=== PATIENT | female | born 1995 | race Caucasian/White ===

== ENCOUNTER 2018-02-11 22:23 | Emergency (ER) | payer OTHER ==
[2018-02-11 22:50] VITALS: BP 123/87
[2018-02-11] MEDS ORDERED: PROCHLORPERAZINE EDISYLATE INJ 10 MG/2 ML VIAL IV ONE (23:15)
[2018-02-11] MEDS ORDERED: ONDANSETRON HCL INJ/PF 4 MG/2 ML SDV IV ONE (23:15)
[2018-02-11] MEDS ORDERED: NORMAL SALINE 1000 ML 1,000 ML IV ONE (23:15)
--- NOTE | 2018-02-11 23:33 | ER Document Report ---
ED General - General Chief Complaint: Passed Out Prior to Arrival Stated Complaint: DIZZINESS Time Seen by Provider: 02/11/18 23:04 TRAVEL OUTSIDE OF THE [place] IN LAST 30 DAYS: No - HPI Patient complains to provider of: Multiple complaints Notes: Patient coming in with syncopal episode just prior to arrival. Patient states she was taking laundry upstairs when she passed out fell did hit her head approximately for 1 minute. Patient states she also has had extreme dizziness stomach pains difficulty breathing for the last 4 days and had migraines. Patient has a history of migraines has seen neurology in the past however states increasing in frequency of the migraines. Patient has no medications for any of her medical complaints at this time. Patient states recently traveled out of state driving. Patient states she is only currently on control. Denies any smoking drinks socially denies any drugs. - Related Data Allergies/Adverse Reactions: Sulfa (Sulfonamide Antibiotics) Allergy (Verified 02/11/18 22:35) sulfamethoxazole [From Septra] Allergy (Verified 02/11/18 22:35) trimethoprim [From Septra] Allergy (Verified 02/11/18 22:35) Past Medical History - Social History Smoking Status: Unknown if Ever Smoked Family History: Reviewed & Not Pertinent Review of Systems - Review of Systems Constitutional: Other - Syncope weakness dizziness migraines EENT: No symptoms reported Cardiovascular: No symptoms reported Respiratory: No symptoms reported Gastrointestinal: No symptoms reported Genitourinary: No symptoms reported Female Genitourinary: No symptoms reported Musculoskeletal: No symptoms reported Skin: No symptoms reported Hematologic/Lymphatic: No symptoms reported Neurological/Psychological: No symptoms reported Physical Exam - Vital signs Vitals: Temp Pulse Resp BP Pulse Ox 99.3 F 101 H 20 123/87 H 99 02/11/18 22:46 02/11/18 22:46 02/11/18 22:46 02/11/18 22:46 02/11/18 22:46 Interpretation: Normal - General General appearance: Appears well, Alert - HEENT Head: Normocephalic, Atraumatic Eyes: Normal Conjunctiva: Normal Cornea: Normal Extraocular movements intact: Yes Eyelashes: Normal Pupils: PERRL Ears: Normal External canal: Normal Tympanic membrane: Normal Nasal: Normal Mouth/Lips: Normal Mucous membranes: Normal Pharynx: Normal Neck: Normal - Respiratory Respiratory status: No respiratory distress Chest status: Nontender Breath sounds: Normal Chest palpation: Normal - Cardiovascular Rhythm: Regular Heart sounds: Normal auscultation Murmur: No - Abdominal Inspection: Normal Distension: No distension Bowel sounds: Normal Tenderness: Nontender Organomegaly: No organomegaly - Back Back: Normal, Nontender - Extremities General upper extremity: Normal inspection, Nontender, Normal color, Normal ROM , Normal temperature General lower extremity: Normal inspection, Nontender, Normal color, Normal ROM , Normal temperature, Normal weight bearing. No: Ramakrishna's sign - Neurological Neuro grossly intact: Yes Cognition: Normal Orientation: AAOx4 Jewel Coma Scale Eye Opening: Spontaneous [place] Coma Scale Verbal: Oriented Jewel Coma Scale Motor: Obeys Commands Jewel Coma Scale Total: 15 Speech: Normal Motor strength normal: LUE, RUE, LLE, RLE Sensory: Normal - Psychological Associated symptoms: Normal affect, Normal mood - Skin Skin Temperature: Warm Skin Moisture: Dry Skin Color: Normal Course - Re-evaluation Re-evalutation: 02/11/18 23:32 Physical examination of the patient was normal. No critical etiology seen we will send laboratory studies down we will get a head CT chest x-ray for the patient's multiple complaints. D-dimer has been sent. Will order Compazine Zofran for her dizziness and underlying conditions. 02/12/18 01:45 Laboratory studies are completely negative. Patient has declined her CT scan of her head at this time. We will review the patient's laboratory results - Vital Signs Vital signs: Temp Pulse Resp BP Pulse Ox 98.2 F 101 H 13 123/87 H 96 02/12/18 02:15 02/11/18 22:46 02/12/18 02:00 02/11/18 22:46 02/12/18 02:00 - Laboratory Result Diagrams: 02/12/18 00:30 02/12/18 00:30 Discharge - Discharge Clinical Impression: Syncope Qualifiers: Syncope type: unspecified Qualified Code(s): R55 - Syncope and collapse Headache Qualifiers: Headache type: unspecified Headache chronicity pattern: unspecified pattern Intractability: not intractable Qualified Code(s): R51 - Headache Condition: Good Disposition: HOME, SELF-CARE Instructions: Headache ([facility]), Syncopal Episode ([facility]) Additional Instructions: Your evaluation does not show any critical pathology for your symptoms tonight no critical pathology for your headaches no critical pathology for your stomach pains. Highly recommend she follow-up with your primary care physician. Recommend taking the Compazine Zofran as prescribed take these 2 tablets together for headaches separately for any nausea that she may have. Return to the ER if any symptoms worsen please make sure you are drinking plenty of fluids to stay well-hydrated. Prescriptions: Ondansetron HCl [Zofran 4 mg Tablet] 1 - 2 tab PO Q6 #30 tablet Prochlorperazine Maleate [Compazine] 5 mg PO Q6 #30 tablet Referrals: MADELYN BILL MD [Primary Care Provider] - Follow up as needed
[2018-02-12 00:46] LABS: ABSOLUTE EOSINOPHILS # (AUTO) 0.3 10^3/uL (0.0-0.6); ABSOLUTE LYMPHOCYTES (AUTO) 2.6 10^3/uL (0.5-4.7); ABSOLUTE MONOCYTES (AUTO) 0.5 10^3/uL (0.1-1.4); ABSOLUTE NEUT (AUTO) 3.7 10^3/uL (1.7-8.2); BASOPHILS % (AUTO) 0.6 % (0-2); EOSINOPHILS % (AUTO) 4.8 % (0-6); HEMATOCRIT 41.9 % (36.0-47.0); HEMOGLOBIN 14.3 g/dL (12.0-15.5); LYMPHOCYTES % (AUTO) 36.3 % (13-45); MEAN CORPUSCULAR HEMOGLOBIN 30.4 pg (27.0-33.4); MEAN CORPUSCULAR HGB CONC 34.3 g/dL (32.0-36.0); MEAN CORPUSCULAR VOLUME 89 fl (80-97); MONOCYTES % (AUTO) 6.5 % (3-13); PLATELET COUNT 317 10^3/uL (150-450); RED BLOOD COUNT 4.71 10^6/uL (3.72-5.28); RED CELL DISTRIBUTION WIDTH 12.6 % (11.5-14.0); SEGMENTED NEUTROPHILS % (AUTO) 51.8 % (42-78); TOTAL CELLS COUNTED % (AUTO) 100 %; WHITE BLOOD COUNT 7.1 10^3/uL (4.0-10.5)
[2018-02-12 00:52] LABS: INTERNATIONAL RATION (INR) 0.85
[2018-02-12 01:05] LABS: ALANINE AMINOTRANSFERASE 37 U/L (9-52); ALBUMIN 4.3 g/dL (3.5-5.0); ALKALINE PHOSPHATASE 58 U/L (38-126); ANION GAP 10 (5-19); ASPARTATE AMINO TRANSFERASE 22 U/L (14-36); BILIRUBIN,DIRECT 0.2 mg/dL (0.0-0.4); BILIRUBIN,TOTAL 0.4 mg/dL (0.2-1.3); BLOOD UREA NITROGEN 15 mg/dL (7-20); CALCIUM 9.6 mg/dL (8.4-10.2); CARBON DIOXIDE 30 mmol/L (22-30); CHLORIDE 101 mmol/L (98-107); CREATINE KINASE 54 U/L (30-135); GLUCOSE 93 mg/dL (75-110); LIPASE 72.9 U/L (23-300); POTASSIUM 4.4 mmol/L (3.6-5.0); TOTAL PROTEIN 7.6 g/dL (6.3-8.2)
[2018-02-12 01:12] LABS: D-DIMER < 0.27 ug/mL (0.00-0.50)
[2018-02-12 01:19] LABS: CREATINE KINASE MB 0.39 ng/mL (<4.55)
[2018-02-12 01:20] LABS: TROPONIN I < 0.012 ng/mL
[2018-02-12 02:26] LABS: APPEARANCE,URINE CLEAR; BILIRUBIN,URINE NEGATIVE (NEGATIVE); COLOR,URINE YELLOW; GLUCOSE, URINE NEGATIVE (NEGATIVE); KETONES,URINE NEGATIVE (NEGATIVE); LEUKOCYTE ESTERASE,URINE NEGATIVE (NEGATIVE); NITRITE,URINE NEGATIVE (NEGATIVE); PROTEIN,URINE NEGATIVE (NEGATIVE); URINE SPECIFIC GRAVITY 1.019; UROBILINOGEN,URINE NEGATIVE mg/dL (<2.0)
--- NOTE | 2018-02-12 09:19 | EKG REPORT ---
SEVERITY:- OTHERWISE NORMAL ECG - SINUS TACHYCARDIA : Confirmed by: Fernanda Mendes MD 12-Feb-2018 09:18:49
== END 2018-02-12 02:38 | disposition home or self-care (01) ==
LOC: ER 22:23
DX: R55 Syncope and collapse (principal); R51 Headache; R42 Dizziness and giddiness; R53.1 Weakness; W19.XXXA Unspecified fall, initial encounter
CPT/HCPCS: 93005; 99284; 96374; 96375; 36415; 82553; 82550; 83690; 83735; 84703; 85025; 85610; 81025; 80053; 81001; 84484; 85379; 93010; J0780; J2405; J7030

== ENCOUNTER 2019-03-31 15:16 | Emergency (ER) | payer BC, OTHER ==
[2019-03-31 15:25] VITALS: BP 97/50
[2019-03-31] MEDS ORDERED: DIPH/PERTUSS(ACELL)/TETANUS VAC/PF 0.5 ML SYR (>=10YO) IM ONE (15:38)
[2019-03-31] MEDS ORDERED: IBUPROFEN 800 MG TABLET PO ONE (15:38)
--- NOTE | 2019-03-31 15:38 | ER Document Report ---
ED Medical Screen (RME) - General Chief Complaint: Hand Injury Stated Complaint: RIGHT HAND INJURY Time Seen by Provider: 03/31/19 15:32 Primary Care Provider: MADELYN BILL MD [ACTIVE STAFF] - Follow up as needed Mode of Arrival: Ambulatory Information source: Patient Notes: 24-year-old female presents the ED for laceration to the base of the right thumb. She states she was opening a can of yams when she sliced her finger on the jams. It was bleeding when first examined her but it was easily stopped. Patient stated her tetanus was not up-to-date and she was given her tetanus immunization. TRAVEL OUTSIDE OF THE [place] IN LAST 30 DAYS: No - HPI Onset: Just prior to arrival Onset/Duration: Sudden Quality of pain: Sharp, Throbbing Pain Level: 4 Associated Symptoms: Other - laceration Exacerbated by: Movement Relieved by: Denies Similar symptoms previously: No Recently seen / treated by doctor: No - Related Data Smoking: Non-smoker Frequency of alcohol use: Social Drug Abuse: None Allergies/Adverse Reactions: Sulfa (Sulfonamide Antibiotics) Allergy (Verified 03/31/19 15:23) sulfamethoxazole [From Septra] Allergy (Verified 03/31/19 15:23) trimethoprim [From Septra] Allergy (Verified 03/31/19 15:23) Past Medical History - General Information source: Patient - Social History Cigarette use (# per day): No Frequency of alcohol use: Social Drug Abuse: None Occupation: eye care Lives with: Family Family history: Reviewed & Not Pertinent - Past Medical History Cardiac Medical History: Reports: None Pulmonary Medical History: Reports: None EENT Medical History: Reports: None Neurological Medical History: Reports: Hx Migraine Endocrine Medical History: Reports: None Renal/ Medical History: Reports: None Malignancy Medical History: Reports: None GI Medical History: Reports: None Musculoskeltal Medical History: Reports None Skin Medical History: Reports None Psychiatric Medical History: Reports: Hx Anxiety, Other - panic attacks vertigo Traumatic Medical History: Reports: None Infectious Medical History: Reports: None Past Surgical History: Reports: Hx Oral Surgery - wisdom - Immunizations Immunizations up to date: Yes Hx Diphtheria, Pertussis, Tetanus Vaccination: Yes - 03/31/2019 Review of Systems - Review of Systems Constitutional: No symptoms reported EENT: No symptoms reported Cardiovascular: No symptoms reported Respiratory: No symptoms reported Gastrointestinal: No symptoms reported Genitourinary: No symptoms reported Female Genitourinary: No symptoms reported Musculoskeletal: No symptoms reported Skin: Other - Laceration right thumb Hematologic/Lymphatic: No symptoms reported Neurological/Psychological: No symptoms reported -: Yes All other systems reviewed and negative Physical Exam - Vital signs Vitals: Temp Pulse BP Pulse Ox 98.1 F 75 97/50 L 97 03/31/19 15:22 03/31/19 15:22 03/31/19 15:22 03/31/19 15:22 Interpretation: Normal - General General appearance: Appears well, Alert - HEENT Head: Normocephalic, Atraumatic Eyes: Normal Pupils: PERRL - Respiratory Respiratory status: No respiratory distress Chest status: Nontender Breath sounds: Normal Chest palpation: Normal - Cardiovascular Rhythm: Regular Heart sounds: Normal auscultation Murmur: No - Abdominal Inspection: Normal Distension: No distension Bowel sounds: Normal Tenderness: Nontender Organomegaly: No organomegaly - Back Back: Normal, Nontender - Extremities General upper extremity: Normal inspection, Nontender, Normal color, Normal ROM, Normal temperature General lower extremity: Normal inspection, Nontender, Normal color, Normal ROM, Normal temperature, Normal weight bearing. No: Ramakrishna's sign - Neurological Neuro grossly intact: Yes Cognition: Normal Orientation: AAOx4 Jewel Coma Scale Eye Opening: Spontaneous Jewel Coma Scale Verbal: Oriented [place] Coma Scale Motor: Obeys Commands Jewel Coma Scale Total: 15 Speech: Normal Motor strength normal: LUE, RUE, LLE, RLE Sensory: Normal - Psychological Associated symptoms: Normal affect, Normal mood - Skin Skin Temperature: Warm Skin Moisture: Dry Skin Color: Normal Skin irregularity: Laceration Location of irregularity: Extremities - Right hand base of the thumb 1 1/2 cm laceration Irregularity with: Tenderness Course - Re-evaluation Re-evalutation: 03/31/19 16:31 Patient was treated with tetanus immunization, ibuprofen, and Keflex in the emergency room her hand was sutured she was given instructions for care of the wound and discharged home. Patient was able to verbalize understanding and agreement with treatment plan. - Vital Signs Vital signs: Temp Pulse Resp BP Pulse Ox 98.1 F 75 97/50 L 97 03/31/19 15:22 03/31/19 15:22 03/31/19 15:22 03/31/19 15:22 Procedures - Laceration/Wound Repair Right Finger Thumb Time completed: 16:29 Wound length (cm): 1.5 Wound's Depth, Shape: Superficial, Linear Laceration pre-procedure: Sterile PPE donned, Sterile drapes applied, Shur-Clens applied Anesthetic type: 1% Lidocaine Volume Anesthetic (mLs): 4 Wound explored: Clean Irrigated w/ Saline (mLs): 200 Wound Repaired With: Sutures Suture Size/Type: 5:0, Ethilon Number of Sutures: 5 Layer Closure?: No Post-procedure wound care: Sterile dressing applied Post-procedure NV exam normal: Yes Complications: No Doctor's Discharge - Discharge Clinical Impression: Laceration of right thumb Qualifiers: Encounter type: initial encounter Damage to nail status: without damage Foreign body presence: without foreign body Qualified Code(s): S61.011A - Laceration without foreign body of right thumb without damage to nail, initial encounter Condition: Stable Disposition: HOME, SELF-CARE Additional Instructions: Hand Laceration A laceration on the hand can present special problems. It may be difficult to keep the wound dry. Motion of the fingers can disturb the healing edges. Your work may involve exposure to damaging chemicals or water. Keep the wound clean and dry. If you can't keep the cut dry, undisturbed, and free of chemical exposure, please discuss this with the doctor. If any water or chemical gets onto the dressing, remove it, blot the wound dry, then apply a fresh bandage. Dressings should be changed every day. If you feel the stitches pulling as you move the hand, a splint or other form of protection is needed. If any signs of infection occur (swelling, redness, increasing tenderness, red streaks, tender lumps in the armpit, or fever), see the doctor immediately. SOAP CLEANSING: Gently wash the wound daily using a mild soap (like Ivory, Phisoderm, Neutrogena). Use warm water, rubbing gently until all debris, ooze, and crusting have been washed from the wound. Allow to dry briefly (about 10 minutes) after cleaning. Repeat this cleansing at least three times a day for the first two days and then once or twice a day. ANTIBIOTIC OINTMENT PROTECTION: Your wounds are such that dressing them is not practical or optional. After cleansing, you should apply a thin coating of antibiotic ointment (Bacitracin, not Neosporin) to the wounds at least three times daily. This lessens infection risk, and may decrease the amount of scarring. Use a q-tip or dull butter knife, not your finger, to apply this ointment. Any debris or ooze which builds up in the ointment should be gently rubbed off with a sterile gauze pad. Harder crusting may need to be gently scrubbed off with a clean wash cloth with soap and warm water, perhaps applying a warm, wet wash cloth to the wound for ten minutes first. Development of redness, severe itching, or blistering may mean allergy to the ointment. See the doctor. TETANUS IMMUNIZATION GIVEN: You have been given an immunization against tetanus. Please record this in your records. In general, a booster is needed only once every 10 years. The tetanus shot protects against tetanus or "lockjaw," which is a complication of certain wound infections (the tetanus shot cannot protect against the actual infection). The immunization site may become warm and red due to local reaction. If this occurs, apply warm compresses and take aspirin or ibuprofen to reduce inflammation and discomfort. Return for evaluation if the reaction becomes severe. PROPHYLACTIC ANTIBIOTIC: The antibiotics which have been prescribed are designed to decrease the risk of infection. Only certain types of wounds benefit from this -- the typical cut, scrape, or burn DOES NOT require antibiotics. Of course, infection can still occur despite the use of prophylactic antibiotics. Your wound will heal with less chance of an infectious complication if you take the medication as directed. The most important dose is the FIRST dose, so don't delay filling the prescription! FOLLOW-UP CARE: Please return in __3___ days for an infection check and dressing change. Your sutures should be removed in ___10__ days. To facilitate a timely removal of your sutures, you may return to the Emergency Department at [facility]. You do not need to call for an appointment, but the best time to come in for suture removal is early in the morning. If you have been referred to another physician for follow-up care, call that physicians office for an appointment as you were instructed. If you experience a significant change in your laceration, or if you are concerned there may be an infection (swelling, redness, drainage, increasing tenderness, red streaks, tender lumps in the armpit or groin above the laceration, or fever), return to the Emergency Department immediately re-evaluation. Prescriptions: Cephalexin Monohydrate [Keflex 500 mg Capsule] 500 mg PO Q6H 5 Days capsule Referrals: MADELYN BILL MD [ACTIVE STAFF] - 04/03/19
[2019-03-31] MEDS ORDERED: LIDOCAINE 1% INJ-PF (10 MG/ML) 30 ML SDV INJ ONE (15:43)
[2019-03-31] MEDS ORDERED: CEPHALEXIN 500 MG CAPSULE PO ONE (16:28)
== END 2019-03-31 16:41 | disposition home or self-care (01) ==
LOC: ER 15:16
PROC: 0HQFXZZ Repair Right Hand Skin, External Approach (ICD-10-PCS; principal; 2019-03-31)
DX: S61.011A Laceration without foreign body of right thumb without damage to nail, initial encounter (principal); W26.8XXA Contact with other sharp object(s), not elsewhere classified, initial encounter
CPT/HCPCS: 99282; 90471; 90715; 12001; J3490

== ENCOUNTER 2019-06-06 03:58 | Emergency (ER) | payer BC, OTHER ==
[2019-06-06] MEDS ORDERED: ONDANSETRON 4 MG TAB.RAPDIS PO ONE (04:29)
[2019-06-06] MEDS ORDERED: ONDANSETRON HCL INJ/PF 4 MG/2 ML SDV IV ONE (05:12)
[2019-06-06] MEDS ORDERED: NORMAL SALINE 1000 ML 1,000 ML IV ONE (05:12)
--- NOTE | 2019-06-06 05:14 | ER Document Report ---
ED Medical Screen (RME) - General Chief Complaint: Nausea/Vomiting Stated Complaint: CHEST PAIN VOMITING AND COUGHING Time Seen by Provider: 06/06/19 05:11 Primary Care Provider: SHABBIR ALONZO MD [Primary Care Provider] - Follow up as needed Notes: 24-year-old female chief complaint of cough that is productive that has been present for 4 weeks, she also states that over the past day she started vomiting, she has vomited 4 times. She has had fevers intermittently. She has completed 2 courses of antibiotics, last one was about a week ago, she also completed prednisone within the past 2 days. Past medical history of anxiety/depression, denies history of asthma, smoking, recreational drugs. She states she does not think she is . TRAVEL OUTSIDE OF THE [place] IN LAST 30 DAYS: No - Related Data Allergies/Adverse Reactions: Sulfa (Sulfonamide Antibiotics) Allergy (Verified 03/31/19 15:23) sulfamethoxazole [From Septra] Allergy (Verified 03/31/19 15:23) trimethoprim [From Septra] Allergy (Verified 03/31/19 15:23) Home Medications: lamictal. prozac. finished augmentin for sinus infection. finished steriods Past Medical History - Social History Family history: Reviewed & Not Pertinent Neurological Medical History: Reports: Hx Migraine Renal/ Medical History: Denies: Hx Peritoneal Dialysis Psychiatric Medical History: Reports: Hx Anxiety Past Surgical History: Reports: Hx Oral Surgery - wisdom - Immunizations Immunizations up to date: Yes Hx Diphtheria, Pertussis, Tetanus Vaccination: Yes - 03/31/2019 Physical Exam - Vital signs Vitals: Temp Pulse Resp BP Pulse Ox 98.4 F 128 H 18 129/96 H 100 06/06/19 04:04 06/06/19 04:04 06/06/19 04:04 06/06/19 04:04 06/06/19 04:04 - Respiratory Respiratory status: No respiratory distress Breath sounds: Normal - Cardiovascular Rhythm: Regular, Tachycardia Heart sounds: Normal auscultation, S1 appreciated, S2 appreciated - Abdominal Inspection: Normal Bowel sounds: Normal Tenderness: Nontender Course - Re-evaluation Re-evalutation: I have greeted and performed a rapid initial assessment of this patient. A comprehensive ED assessment and evaluation of the patient, analysis of test results and completion of the medical decision making process will be conducted by additional ED providers. - Vital Signs Vital signs: Temp Pulse Resp BP Pulse Ox 98.4 F 128 H 18 134/91 H 100 06/06/19 04:04 06/06/19 04:04 06/06/19 04:04 06/06/19 04:05 06/06/19 04:04 - Laboratory Result Diagrams: 06/06/19 05:00 06/06/19 05:00 Doctor's Discharge - Discharge Referrals: SHABBIR ALONZO MD [Primary Care Provider] - Follow up as needed
[2019-06-06 05:21] LABS: ABSOLUTE EOSINOPHILS # (AUTO) 0.1 10^3/uL (0.0-0.6); ABSOLUTE LYMPHOCYTES (AUTO) 0.9 10^3/uL (0.5-4.7); ABSOLUTE MONOCYTES (AUTO) 0.4 10^3/uL (0.1-1.4); ABSOLUTE NEUT (AUTO) 10.3 10^3/uL (1.7-8.2); BASOPHILS % (AUTO) 0.2 % (0-2); EOSINOPHILS % (AUTO) 1.2 % (0-6); HEMATOCRIT 45.8 % (36.0-47.0); HEMOGLOBIN 15.5 g/dL (12.0-15.5); LYMPHOCYTES % (AUTO) 7.4 % (13-45); MEAN CORPUSCULAR HEMOGLOBIN 29.8 pg (27.0-33.4); MEAN CORPUSCULAR HGB CONC 33.9 g/dL (32.0-36.0); MEAN CORPUSCULAR VOLUME 88 fl (80-97); MONOCYTES % (AUTO) 3.5 % (3-13); PLATELET COUNT 304 10^3/uL (150-450); RED BLOOD COUNT 5.21 10^6/uL (3.72-5.28); RED CELL DISTRIBUTION WIDTH 12.9 % (11.5-14.0); SEGMENTED NEUTROPHILS % (AUTO) 87.7 % (42-78); TOTAL CELLS COUNTED % (AUTO) 100 %; WHITE BLOOD COUNT 11.7 10^3/uL (4.0-10.5)
[2019-06-06 05:24] LABS: APPEARANCE,URINE CLOUDY; BILIRUBIN,URINE NEGATIVE (NEGATIVE); COLOR,URINE YELLOW; GLUCOSE, URINE NEGATIVE (NEGATIVE); KETONES,URINE NEGATIVE (NEGATIVE); LEUKOCYTE ESTERASE,URINE LARGE (NEGATIVE); NITRITE,URINE NEGATIVE (NEGATIVE); PROTEIN,URINE 30 mg/dL (NEGATIVE); URINE SPECIFIC GRAVITY 1.018; UROBILINOGEN,URINE NEGATIVE mg/dL (<2.0)
[2019-06-06 05:42] LABS: ALBUMIN 3.8 g/dL (3.5-5.0); ALKALINE PHOSPHATASE 141 U/L (38-126); ANION GAP 8 (5-19); ASPARTATE AMINO TRANSFERASE 38 U/L (14-36); BILIRUBIN,TOTAL 0.3 mg/dL (0.2-1.3); BLOOD UREA NITROGEN 24 mg/dL (7-20); CARBON DIOXIDE 32 mmol/L (22-30); CHLORIDE 99 mmol/L (98-107); GLUCOSE 104 mg/dL (75-110); POTASSIUM 4.4 mmol/L (3.6-5.0)
[2019-06-06] MEDS ORDERED: MECLIZINE HCL 25 MG TABLET PO ONE (06:49)
[2019-06-06] MEDS ORDERED: KETOROLAC TROMETHAMINE INJ/PF 30 MG/1 ML SDV IV ONE (06:57)
[2019-06-06] MEDS ORDERED: ACETAMINOPHEN 325 MG TABLET PO ONE (06:58)
[2019-06-06 07:37] LABS: A TYPE INFLUENZA AG NEGATIVE (NEGATIVE); B INFLUENZA AG NEGATIVE (NEGATIVE)
--- NOTE | 2019-06-06 07:37 | RADIOLOGY REPORT (SQ) ---
EXAM: XR Chest, 2 Views EXAM DATE/TIME: 06/06/2019 7:16 AM CLINICAL HISTORY: The patient is 24 years old and is Female; productive cough, coughing for weeks TECHNIQUE: Frontal and lateral views of the chest. COMPARISON: No relevant prior studies available. FINDINGS: LUNGS: Unremarkable. No consolidation. PLEURAL SPACE: Unremarkable. No pneumothorax. HEART: No significant enlargement of the cardiac silhouette. MEDIASTINUM: Unremarkable. BONES/JOINTS: No acute osseous findings. IMPRESSION: No acute findings visualized in the chest.
[2019-06-06 10:30] VITALS: BP 106/70
--- NOTE | 2019-06-06 16:14 | ER Document Report ---
Entered by GRAYSON KNAPP SCRIBE 06/06/19 0646 Acting as scribe for:ARIANNE MARX MD ED General - General Chief Complaint: Nausea/Vomiting Stated Complaint: CHEST PAIN VOMITING AND COUGHING Time Seen by Provider: 06/06/19 05:11 Primary Care Provider: SHABBIR ALONZO MD [Primary Care Provider] - Follow up as needed Mode of Arrival: Ambulatory Information source: Patient, Relative - Notes: This 24-year-old female patient presents to the emergency department today with complaints of multiple symptoms, most of which have been going on for x1 month or longer. Patient states that she has been seen by her primary care physician for this persistent cough x3 times in the past month. She was initially started on Augmentin for a "sinus infection", on her second visit she was started on steroids, neither of these treatments relieved her cough. Patient states she was tested for the flu and for strep throat, both of which were negative. Patient states her first chest x-ray was done x2 days ago but she has not heard the results from that. Patient also complains of nausea and vomiting which is new since yesterday. Patient states she stopped taking her oral control in March of 2019 and she has not had a menstrual cycle since stopping the medication. Patient states that she is not to her knowledge. Patient also mentions many other symptoms that have been intermittent for x1 month including subjective fevers, sore throat, headaches, and ear pain. PCP: [facility] TRAVEL OUTSIDE OF THE [place] IN LAST 30 DAYS: No - Related Data Allergies/Adverse Reactions: Sulfa (Sulfonamide Antibiotics) Allergy (Verified 03/31/19 15:23) sulfamethoxazole [From Septra] Allergy (Verified 03/31/19 15:23) trimethoprim [From Septra] Allergy (Verified 03/31/19 15:23) Home Medications: lamictal. prozac. finished augmentin for sinus infection. finished steriods Past Medical History - General Information source: Patient - Social History Smoking Status: Never Smoker Cigarette use (# per day): No Frequency of alcohol use: None Drug Abuse: None Lives with: Spouse/Significant other Family History: Reviewed & Not Pertinent Patient has suicidal ideation: No Patient has homicidal ideation: No Pulmonary Medical History: Reports: Hx Pneumonia - as a child EENT Medical History: Reports: Other - Hx of vertigo, treated with lamictal per pt Neurological Medical History: Reports: Hx Migraine GI Medical History: Reports: Hx Irritable Bowel Psychiatric Medical History: Reports: Hx Anxiety Past Surgical History: Reports: Hx Oral Surgery - wisdom teeth extracted - Immunizations Immunizations up to date: Yes Hx Diphtheria, Pertussis, Tetanus Vaccination: Yes - 03/31/2019 Review of Systems - Review of Systems Constitutional: See HPI, Chills, Fever - subjective EENT: See HPI, Ear pain, Throat pain. denies: Nose congestion Cardiovascular: See HPI, Dizziness Respiratory: See HPI, Cough, Wheezing Gastrointestinal: See HPI, Nausea, Vomiting Genitourinary: No symptoms reported Female Genitourinary: Last menstrual period - March, states she stopped taking oral control in 2018 Musculoskeletal: No symptoms reported Skin: No symptoms reported Hematologic/Lymphatic: No symptoms reported Neurological/Psychological: See HPI, Anxiety -: Yes All other systems reviewed and negative Physical Exam - Vital signs Vitals: Temp Pulse Resp BP Pulse Ox 98.4 F 128 H 18 129/96 H 100 06/06/19 04:04 06/06/19 04:04 06/06/19 04:04 06/06/19 04:04 06/06/19 04:04 - Notes Notes: Physical Exam: General: Alert, appears well. Complains of dizziness when sitting up for lung exam. HEENT: Normocephalic. Atraumatic. PERRL. Extraocular movements intact. Oropharynx clear. Bilateral serous effusions, TMs are bulging somewhat as well. No posterior oropharynx erythema or exudate. Neck: Supple. Non-tender. Respiratory: No respiratory distress. Clear and equal breath sounds bilaterally. Cardiovascular: Regular rate and rhythm. Abdominal: Obese. Non-tender. No distension. Normal Bowel Sounds. Back: No gross abnormalities. Extremities: Moves all four extremities. Upper extremities: Normal inspection. Normal ROM. Lower extremities: Normal inspection. No edema. Normal ROM. Neurological: Normal cognition. AAOx4. Normal speech. Psychological: Normal affect. Normal Mood. Skin: Warm. Dry. Normal color. Course - Re-evaluation Re-evalutation: 06/06/19 09:52 On reevaluation patient states that she feels better with less nausea at this time. She also reports an improvement in her dizziness. Apolinar with patient that she has an upper respiratory infection that she is already been treated for multiple times in the past month most likely this is a viral illness. Patient was seen by her primary on Thursday chest x-rays were done as well as blood work she is to follow-up regarding the result results of that work-up with her primary. - Vital Signs Vital signs: Temp Pulse Resp BP Pulse Ox 97.9 F 114 H 18 105/70 96 06/06/19 08:31 06/06/19 08:31 06/06/19 08:31 06/06/19 08:31 06/06/19 08:31 - Laboratory Result Diagrams: 06/06/19 05:00 06/06/19 05:00 Laboratory results interpreted by me: 06/06/19 06/06/19 06/06/19 05:00 05:00 05:00 WBC 11.7 H Lymph % (Auto) 7.4 L Absolute Neuts (auto) 10.3 H Seg Neutrophils % 87.7 H Carbon Dioxide 32 H BUN 24 H AST 38 H Alkaline Phosphatase 141 H Urine Protein 30 H Ur Leukocyte Esterase LARGE H - Diagnostic Test Radiology reviewed: Image reviewed, Reports reviewed Radiology results interpreted by me: 06/06/19 09:53 Chest x-ray read by radiologist disclose no acute process. No infiltrate no pneumonia. - EKG Interpretation by Me Additional EKG results interpreted by me: 06/06/19 10:19 Twelve-lead EKG done at 415 shows a sinus tachycardia rate of 115 probable left atrial abnormality. No acute ST T wave changes otherwise. Discharge - Discharge Clinical Impression: Labyrinthitis of both ears, Upper respiratory infection, Nausea Condition: Stable Disposition: HOME, SELF-CARE Instructions: Acetaminophen, Labyrinthitis ([facility]), Meclizine ([facility]), Upper Respiratory Illness ([facility]) Prescriptions: Meclizine HCl [Antivert 25 mg Tablet] 25 mg PO TID PRN #21 tablet PRN Reason: Ondansetron [Zofran Odt 4 mg Tablet] 1 - 2 tab PO Q4H PRN #15 tab.rapdis PRN Reason: For Nausea/Vomiting Referrals: SHABBIR ALONZO MD [Primary Care Provider] - Follow up as needed I personally performed the services described in the documentation, reviewed and edited the documentation which was dictated to the scribe in my presence, and it accurately records my words and actions.
== END 2019-06-06 10:27 | disposition home or self-care (01) ==
LOC: ER 03:58
DX: J06.9 Acute upper respiratory infection, unspecified (principal); H83.03 Labyrinthitis, bilateral; R05 Cough; R11.2 Nausea with vomiting, unspecified; J02.9 Acute pharyngitis, unspecified; R51 Headache; H92.09 Otalgia, unspecified ear; R68.83 Chills (without fever); R00.0 Tachycardia, unspecified; R06.2 Wheezing; F41.9 Anxiety disorder, unspecified; R42 Dizziness and giddiness; Z79.899 Other long term (current) drug therapy; Z88.2 Allergy status to sulfonamides; Z88.1 Allergy status to other antibiotic agents
CPT/HCPCS: 99283; 96361; 96374; 96375; 36415; 87070; 87880; 83690; 84703; 85025; 80053; 81001; 87804; 71046; S0119; J1885; J2405; J7030

== ENCOUNTER 2019-11-04 09:26 | Emergency (ER) | payer OTHER, BC ==
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
[2019-11-04 12:12] VITALS: BP 122/78
== END 2019-11-04 12:05 | disposition home or self-care (01) ==
LOC: ER 09:26
DX: M54.2 Cervicalgia (principal); V49.40XA Driver injured in collision with unspecified motor vehicles in traffic accident, initial encounter
CPT/HCPCS: 72125; 81025; 99284